=== PATIENT | female | born 1970 | race Caucasian/White ===

== ENCOUNTER 2019-03-24 17:55 | Emergency (ER) | payer OTHER ==
[~2019-03-24] VITALS: Ht 152.4 cm; Wt 67.1 kg
[~2019-03-24 17:55] MED LIST: AMLODIPINE BESY10 MG PO; ATIVAN1 MG PO; BENTYL 20 MG TA20 M1 PO; CIPRO500 MG PO; FLAGYL500 MG PO; HYDROCODONE-AP1 EAC6 PO; IRON325 PO; OXYCODONE HCL 55 MG PO; OXYCONTIN10 M1; OXYCONTIN10 M1 PO; OXYCONTIN20 M1 PO; PANCREAZE DR 11 EAC2 PO; PERCOCET PO; PREDNISONE 20 M20 M1 PO; PROTONIX 20 MG20 M1 PO; ROXICODONE15 M1; TOPROL XL25 MG PO; VENTOLIN HFA 1818 GM INH; XARELTO15 MG PO; XARELTO20 MG PO; ZOFRAN ODT4 MG PO; ZPAK PO
[2019-03-24 18:10] LABS: URINE BILIRUBIN NEGATIVE (Negative); URINE BLOOD NEGATIVE (Negative); URINE CLARITY CLEAR; URINE COLOR YELLOW; URINE GLUCOSE-RANDOM NEGATIVE (Negative); URINE KETONES NEGATIVE (Negative); URINE LEUKOCYTES NEGATIVE (Negative); URINE NITRITE NEGATIVE (Negative); URINE PROTEIN NEGATIVE (Negative); URINE SPECIFIC GRAVITY <= 1.005 (1.005-1.030); URINE UROBILINOGEN 0.2 E.U./dl (0.2-1.0)
[2019-03-24 18:18] LABS: ABSOLUTE BASOPHILS 0.1 thou/uL (0.0-0.2); ABSOLUTE EOSINOPHILS 0.2 thou/uL (0.0-0.7); ABSOLUTE LYMPHOCYTES 1.8 thou/uL (0.8-5.3); ABSOLUTE MONOCYTES 0.6 thou/uL (0.0-1.2); ABSOLUTE NEUTROPHILS 3.4 thou/uL (1.6-8.1); BASOPHILS 1.5 %; EOSINOPHILS 2.6 %; HEMATOCRIT 33.4 % (37.0-47.0); HEMOGLOBIN 10.5 gm/dL (12.0-15.0); LYMPHOCYTES 30.5 %; MCH 22.2 pg (26.0-34.0); MCHC 31.3 g/dL (28.0-37.0); MCV 70.7 fL (80.0-100.0); MONOCYTES 9.5 %; MPV 6.9 fl. (7.2-11.1); NUCLEATED RBCS 0 /100WBC; PLATELET COUNT* 363 thou/uL (150-400); POLYS 55.9 %; RBC 4.72 mil/uL (4.20-5.00); RDW-CV 16.3 % (10.5-14.5)
[2019-03-24 18:32] LABS: POTASSIUM 3.7 mmol/L (3.5-5.1)
[2019-03-24 18:41] LABS: ALBUMIN 3.9 g/dL (3.4-5.0); TOTAL BILIRUBIN 0.3 mg/dL (<0.1-1.0); TOTAL PROTEIN 7.2 g/dL (6.4-8.2)
[2019-03-24 18:44] LABS: TROPONIN-I LEVEL <0.06 ng/mL (<0.06)
[2019-03-24 18:52] LABS: PLATELET ESTIMATE ADEQUATE
[2019-03-24 18:53] LABS: HYPOCHROMASIA 1+; MICROCYTES 1+
[2019-03-24 20:34] VITALS: BP 0/0
--- NOTE | 2019-03-25 10:47 | EKG ---
[place] [address] ELECTROCARDIOGRAM REPORT Name: CONNOR JOINER Room: [facility]#: [id number] Admission: 03/24/19 Attend Phys: Discharge: 03/24/19 Date of : 72 Report #: [id number] THIS REPORT FOR: //name// [facility] ED Test Date: 2019-03-24 Test Time: 18:25:56 Pat Name: CONNOR JOINER Department: Room: Gender: F Retail Sales Consultant: MARCOS : 1970 Requested By: Will Chadwick Order Number: [id number] MD: Casey Vasquez Measurements Intervals [place] Rate: 85 P: 52 DE: 172 QRS: 18 QRSD: 92 T: 35 QT: 359 QTc: 427 Interpretive Statements Sinus rhythm Probable left atrial enlargement Compared to ECG 05/10/2017 16:13:03 No significant changes Electronically Signed On 03-25-2019 10:47:06 CDT by Casey Vasquez [email or web address] <ELECTRONICALLY SIGNED> By: Casey Vasquez MD, [facility] 03/25/19 1047 1825 1825 Casey Vasquez MD, FACC /EPI
== END 2019-03-24 20:36 | disposition home or self-care (01) ==
LOC: M.ERS 17:55
PROVIDERS: Nurse Practitioner Family
DX: R10.12 Left upper quadrant pain (principal); R11.2 Nausea with vomiting, unspecified; N80.9 Endometriosis, unspecified; Z91.041 Radiographic dye allergy status; Z88.1 Allergy status to other antibiotic agents; Z88.6 Allergy status to analgesic agent; Z88.2 Allergy status to sulfonamides; Z88.8 Allergy status to other drugs, medicaments and biological substances; Z90.49 Acquired absence of other specified parts of digestive tract; Z86.718 Personal history of other venous thrombosis and embolism

== ENCOUNTER 2019-07-02 09:01 | Emergency (ER) | payer OTHER ==
[~2019-07-02] VITALS: Ht 152.4 cm; Wt 69.4 kg
[2019-07-02] MEDS ORDERED: CARVEDILOL12.5 MG PO (09:12)
[2019-07-02] MEDS ORDERED: LISINOPRIL2.5 MG PO (09:12)
[2019-07-02 09:23] LABS: URINE BLOOD 3+ (Negative); URINE CLARITY CLOUDY; URINE COLOR YELLOW; URINE GLUCOSE-RANDOM NEGATIVE (Negative); URINE KETONES NEGATIVE (Negative); URINE PROTEIN 3+ (Negative); URINE SPECIFIC GRAVITY >= 1.030 (1.005-1.030); URINE UROBILINOGEN 0.2 E.U./dl (0.2-1.0)
[2019-07-02 09:25] LABS: URINE BILIRUBIN 1+ (Negative); URINE LEUKOCYTES-REFLEX 2+ (Negative); URINE NITRITE-REFLEX POSITIVE (Negative)
[2019-07-02 09:26] LABS: ICTOTEST (BILI CONFIRMATORY) Negative (Negative)
[2019-07-02 09:34] LABS: RENAL EPITHELIAL CELLS 0-3 Few /LPF (None Seen)
[2019-07-02 09:35] LABS: SQUAMOUS 4-10 Moderate /LPF (0-3); TRANSITIONAL EPITHEL CELL 0-3 Few /LPF (None Seen); URINE WBC-REFLEX >25 Many /HPF (0-5)
[2019-07-02] MEDS ORDERED: PYRIDIUM200 MG PO (09:35)
[2019-07-02] MEDS ORDERED: KEFLEX500 M1 PO (09:35)
[2019-07-02 09:36] LABS: BACTERIA-REFLEX >30 Many /HPF (None Seen); HYALINE CASTS 4-10 Moderate /LPF (None Seen); MUCUS >6 Heavy strn/LPF (None Seen); WBC CLUMPS Few (None Seen)
[2019-07-02 09:37] LABS: CRYSTALS None Seen /LPF (None Seen)
[2019-07-02 09:39] VITALS: BP 156/98
== END 2019-07-02 09:39 | disposition home or self-care (01) ==
LOC: M.ERS 09:01
PROVIDERS: Emergency Medicine Emergency Medical Services
DX: N39.0 Urinary tract infection, site not specified (principal); F32.9 Major depressive disorder, single episode, unspecified; F41.9 Anxiety disorder, unspecified; Z90.49 Acquired absence of other specified parts of digestive tract; Z86.718 Personal history of other venous thrombosis and embolism; Z88.6 Allergy status to analgesic agent; Z88.2 Allergy status to sulfonamides; Z88.8 Allergy status to other drugs, medicaments and biological substances; Z88.1 Allergy status to other antibiotic agents; Z91.041 Radiographic dye allergy status

== ENCOUNTER 2020-02-20 20:26 | Emergency (ER) | payer MEDICARE ==
[~2020-02-20] VITALS: Ht 152.4 cm; Wt 62.1 kg
[~2020-02-20 20:26] MED LIST changes: +CARVEDILOL12.5 MG PO; +KEFLEX500 M1 PO; +LISINOPRIL2.5 MG PO; +PYRIDIUM200 MG PO
[2020-02-20 21:13] LABS: URINE BILIRUBIN NEGATIVE (Negative); URINE BLOOD NEGATIVE (Negative); URINE CLARITY CLEAR; URINE COLOR YELLOW; URINE GLUCOSE-RANDOM NEGATIVE (Negative); URINE KETONES NEGATIVE (Negative); URINE LEUKOCYTES-REFLEX TRACE (Negative); URINE NITRITE-REFLEX NEGATIVE (Negative); URINE PROTEIN NEGATIVE (Negative); URINE UROBILINOGEN 0.2 E.U./dl (0.2-1.0)
[2020-02-20 21:22] LABS: HYALINE CASTS 0-3 Few /LPF (None Seen); MUCUS 0-3 Light strn/LPF (None Seen); URINE WBC-REFLEX 6-15 Few /HPF (0-5)
[2020-02-20 21:23] LABS: BACTERIA-REFLEX 1-9 Few /HPF (None Seen); CRYSTALS None Seen /LPF (None Seen); SQUAMOUS 0-3 Few /LPF (0-3); URINE RBC None Seen /HPF (0-2)
[2020-02-20 22:10] LABS: ABSOLUTE EOSINOPHILS 0.1 thou/uL (0.0-0.7); ABSOLUTE LYMPHOCYTES 1.3 thou/uL (0.8-5.3); ABSOLUTE MONOCYTES 0.3 thou/uL (0.0-1.2); BASOPHILS 0.8 %; EOSINOPHILS 3.3 %; HEMATOCRIT 30.1 % (37.0-47.0); HEMOGLOBIN 9.7 gm/dL (12.0-15.0); LYMPHOCYTES 33.4 %; MCH 22.5 pg (26.0-34.0); MCHC 32.2 g/dL (28.0-37.0); MCV 69.7 fL (80.0-100.0); MONOCYTES 8.8 %; MPV 7.1 fl. (7.2-11.1); NUCLEATED RBCS 0 /100WBC; PLATELET COUNT* 326 thou/uL (150-400); POLYS 53.7 %; RBC 4.31 mil/uL (4.20-5.00); RDW-CV 19.8 % (10.5-14.5); WBC 3.8 thou/uL (4.0-11.0)
[2020-02-20 22:23] LABS: CALCIUM 8.8 mg/dL (8.5-10.1); CREATININE 1.1 mg/dL (0.6-1.3)
[2020-02-20 22:28] LABS: ALBUMIN 3.6 g/dL (3.4-5.0); TOTAL BILIRUBIN 0.3 mg/dL (<0.1-1.0); TOTAL PROTEIN 7.2 g/dL (6.4-8.2)
[2020-02-20 23:02] LABS: OVALOCYTES Occasional
[2020-02-20 23:03] LABS: ANISOCYTOSIS 2+; HYPOCHROMASIA 2+; MICROCYTES 2+; PLATELET ESTIMATE ADEQUATE
[2020-02-21 02:01] VITALS: BP 162/92
== END 2020-02-21 02:02 | disposition home or self-care (01) ==
LOC: M.ERS 20:26
PROVIDERS: Emergency Medicine
DX: R10.12 Left upper quadrant pain (principal); R10.13 Epigastric pain; N80.9 Endometriosis, unspecified; F32.9 Major depressive disorder, single episode, unspecified; F41.9 Anxiety disorder, unspecified; Z90.49 Acquired absence of other specified parts of digestive tract; Z86.718 Personal history of other venous thrombosis and embolism; Z90.710 Acquired absence of both cervix and uterus; Z91.041 Radiographic dye allergy status; Z88.1 Allergy status to other antibiotic agents; Z88.2 Allergy status to sulfonamides; Z88.6 Allergy status to analgesic agent; Z88.8 Allergy status to other drugs, medicaments and biological substances

== ENCOUNTER 2020-03-19 16:18 | Emergency (ER) | payer MEDICARE, MEDICAID ==
[~2020-03-19] VITALS: Ht 152.4 cm; Wt 62.6 kg
[2020-03-19] MEDS ORDERED: MEDROLDOSEPACK PO (17:05)
[2020-03-19] MEDS ORDERED: HYDROXYZINE HCL10 M2 PO (17:05)
[2020-03-19 17:48] VITALS: BP 155/94
== END 2020-03-19 17:49 | disposition home or self-care (01) ==
LOC: M.ERS 16:18
DX: L50.9 Urticaria, unspecified (principal); F32.9 Major depressive disorder, single episode, unspecified; F41.9 Anxiety disorder, unspecified; Z86.718 Personal history of other venous thrombosis and embolism; Z86.711 Personal history of pulmonary embolism; Z90.710 Acquired absence of both cervix and uterus; Z91.041 Radiographic dye allergy status; Z88.1 Allergy status to other antibiotic agents; Z88.2 Allergy status to sulfonamides; Z88.6 Allergy status to analgesic agent; Z88.8 Allergy status to other drugs, medicaments and biological substances

== ENCOUNTER 2020-05-11 20:19 | Emergency (ER) | payer MEDICARE, MEDICAID ==
[~2020-05-11] VITALS: Ht 152.4 cm; Wt 59.9 kg
[~2020-05-11 20:19] MED LIST changes: +HYDROXYZINE HCL10 M2 PO; +MEDROLDOSEPACK PO
[2020-05-11] MEDS ORDERED: ELIQUIS5 M1 PO (20:58)
[2020-05-11 21:16] LABS: URINE BILIRUBIN NEGATIVE (Negative); URINE BLOOD 3+ (Negative); URINE COLOR YELLOW; URINE GLUCOSE-RANDOM NEGATIVE (Negative); URINE KETONES NEGATIVE (Negative); URINE LEUKOCYTES-REFLEX 1+ (Negative); URINE NITRITE-REFLEX NEGATIVE (Negative); URINE PROTEIN TRACE (Negative); URINE UROBILINOGEN 0.2 E.U./dl (0.2-1.0)
[2020-05-11 21:17] LABS: URINE CLARITY CLOUDY
[2020-05-11 21:18] LABS: SQUAMOUS 0-3 Few /LPF (0-3)
[2020-05-11 21:19] LABS: AMORPHOUS URATES Few /LPF (None Seen); CASTS None Seen /LPF (None Seen); URINE RBC 0-2 Rare /HPF (0-2); URINE WBC-REFLEX >25 Many /HPF (0-5)
[2020-05-11 21:33] VITALS: BP 140/68
--- NOTE | 2020-05-12 12:03 | EKG ---
[place] [address] ELECTROCARDIOGRAM REPORT Name: CONNOR JOINER Room: [facility]#: [id number] Admission: 05/11/20 Attend Phys: Discharge: 05/11/20 Date of : 72 Date of Service: 05/11/202057 Report #: [id number] THIS REPORT FOR: //name// [facility] ED Test Date: 2020-05-11 Test Time: 20:58:52 Pat Name: CONNOR JOINER Department: Room: Gender: Handle Lathe Operator: : 1970 Requested By: Alfredo Mcelroy Order Number: [id number] MD: Xavier Andre Measurements Intervals [place] Rate: 76 P: 69 CA: 161 QRS: 69 QRSD: 97 T: 60 QT: 391 QTc: 440 Interpretive Statements Sinus rhythm Compared to ECG 03/24/2019 18:25:56 No significant changes Electronically Signed On 05-12-2020 12:03:15 CDT by Xavier Andre [email or web address] <ELECTRONICALLY SIGNED> By: Vanessa Andre MD, [facility] 05/12/203 57 57 Vanessa Andre MD, [facility] /EPI
== END 2020-05-11 21:34 | disposition left against medical advice (07) ==
LOC: M.ERS 20:19
PROVIDERS: Family Medicine
DX: G89.29 Other chronic pain (principal); R10.12 Left upper quadrant pain; Z88.1 Allergy status to other antibiotic agents; Z88.2 Allergy status to sulfonamides; Z88.6 Allergy status to analgesic agent; Z88.8 Allergy status to other drugs, medicaments and biological substances; Z98.890 Other specified postprocedural states; Z90.49 Acquired absence of other specified parts of digestive tract; Z90.710 Acquired absence of both cervix and uterus; Z79.899 Other long term (current) drug therapy; Z91.041 Radiographic dye allergy status